=== PATIENT | female | born 1945 | race Caucasian/White ===

== ENCOUNTER → 2023-08-19 14:45 | Outpatient (REF) | payer OTHER, SELFPAY | LOC: RAD 14:45 | PROVIDERS: ATTENDING PHYSICIAN Nuclear Medicine Nuclear Cardiology; FAMILY PHYSICIAN Nurse Practitioner Adult Health | DX: I48.0 Paroxysmal atrial fibrillation (principal); Z95.828 Presence of other vascular implants and grafts | CPT/HCPCS: 76770 ==

== ENCOUNTER → 2023-12-23 14:34 | Outpatient (REF) | payer OTHER, SELFPAY | LOC: RCS 14:34 | PROVIDERS: ATTENDING PHYSICIAN Nuclear Medicine Nuclear Cardiology; FAMILY PHYSICIAN Nurse Practitioner Adult Health | DX: I42.9 Cardiomyopathy, unspecified (principal) | CPT/HCPCS: 93306 ==

== ENCOUNTER → 2024-11-04 09:35 | Outpatient (REF) | payer OTHER, SELFPAY | LOC: RAD 09:35 | PROVIDERS: ATTENDING PHYSICIAN Internal Medicine; FAMILY PHYSICIAN Nurse Practitioner Adult Health | DX: N17.9 Acute kidney failure, unspecified (principal) | CPT/HCPCS: 93975 ==